=== PATIENT | female | born 1990 | race Two or more races ===

== ENCOUNTER 2024-01-11 12:52 | Emergency (ER) | payer OTHER ==
[2024-01-11 13:08] LABS: APPEARANCE,URINE SLIGHTLY CLOUDY; BILIRUBIN,URINE NEGATIVE (NEGATIVE); COLOR,URINE YELLOW; GLUCOSE,URINE NEGATIVE (NEGATIVE); KETONES,URINE NEGATIVE (NEGATIVE); LEUKOCYTE ESTERASE,URINE NEGATIVE (NEGATIVE); NITRITE,URINE NEGATIVE (NEGATIVE); OCCULT BLOOD,URINE NEGATIVE (NEGATIVE); PROTEIN,URINE TRACE mg/dL (NEGATIVE); UROBILINOGEN,URINE 0.2 E.U./dL (0.2-1.0)
[2024-01-11 13:23] LABS: BACTERIA,URINE FEW /HPF (NONE TO FEW); EPITHELIAL CELLS,URINE MODERATE /LPF; MUCUS,URINE MANY /LPF (NEGATIVE); RBC,URINE 0-5 /HPF; WBC,URINE 0-5 /HPF
[2024-01-11] MEDS: Cyclobenzaprine 10 MG Tab PO ONE (14:13)
[2024-01-11] MEDS: Ketorolac 30 MG/ML SDV IM ONE (14:14)
== END 2024-01-11 15:45 | disposition home or self-care (01) ==
LOC: LL.ED 12:52
DX: M54.42 Lumbago with sciatica, left side (principal); E66.9 Obesity, unspecified; F17.210 Nicotine dependence, cigarettes, uncomplicated; Z79.899 Other long term (current) drug therapy; Z91.048 Other nonmedicinal substance allergy status
CPT/HCPCS: 72100; 81001; 96372; 99283; A9270; J1885; 99284